=== PATIENT | female | born 1985 | race Caucasian/White ===

== ENCOUNTER → 2018-09-06 | Outpatient (CLI) | payer SELFPAY ==
--- NOTE | 2018-09-06 09:44 | KCIC ---
Ultrasound abdomen limited HISTORY: History of elevated liver enzymes COMPARISON: None available FINDINGS: The liver length measures 15.2 cm. Increased echogenicity noted throughout the liver likely hepatic steatosis. Common bile duct measures 5 mm in diameter. Cholecystectomy changes. The right kidney measures 10.3 x 4.9 x 4.8 cm. The pancreas, IVC, aorta, are poorly visualized. IMPRESSION: 1. Increased echogenicity noted throughout the liver likely hepatic steatosis. 2. Cholecystectomy changes. Electronically signed by: Ifeanyi Briggs MD (09/06/2018 9:40 AM) [place] [id number]
== END | disposition home or self-care (01) ==
LOC: KCIC US 07:47
PROVIDERS: ATTEND Nurse Practitioner
DX: R74.8 Abnormal levels of other serum enzymes (principal); Z90.49 Acquired absence of other specified parts of digestive tract
CPT/HCPCS: 76705

== ENCOUNTER → 2019-09-25 | Outpatient (CLI) | payer SELFPAY ==
--- NOTE | 2019-09-25 11:14 | KCIC ---
Exam: Right Upper Quadrant Ultrasound 09/25/2019 8:00 AM Indication: Technique: Multiple realtime grayscale sonographic images were obtained over the abdomen. Static images were submitted for interpretation. Comparisons: None Findings: Visualized portions of the pancreas are unremarkable. There is borderline thyromegaly. The liver measures 18 cm longitudinally. Probable hepatic steatosis is noted with diffuse increased echogenicity of the liver. No intrahepatic biliary dilatation is seen. I removed the gallbladder.. No focal lesions are identified. Right kidney is unremarkable in appearance measuring 11.7 cm in length. Impression: 1. Borderline hepatomegaly. Probable hepatic steatosis 2. Prior cholecystectomy Electronically signed by: Soy Owens MD (09/25/2019 11:11 AM) [id number]
== END | disposition home or self-care (01) ==
LOC: KCIC US 07:52
PROVIDERS: ATTEND Family Medicine
DX: R16.0 Hepatomegaly, not elsewhere classified (principal); E01.0 Iodine-deficiency related diffuse (endemic) goiter; Z90.49 Acquired absence of other specified parts of digestive tract
CPT/HCPCS: 76705